=== PATIENT | female | born 1960 | race Caucasian/White ===

== ENCOUNTER 2018-07-01 05:27 | Inpatient (IN) ==
[2018-07-01] MEDS ORDERED: Chlorhexidine Gluconate 2% 1 Pack (2 Cloths) TOPICAL ONE (05:46)
[2018-07-01] MEDS ORDERED: Metoprolol Tartrate 25 MG Tablet PO ONE (05:46)
[2018-07-01] MEDS ORDERED: Dexamethasone Inj 20 MG/5 ML Vial IV.PUSH ONE (05:47)
[2018-07-01] MEDS ORDERED: Chlorhexidine 4% Topical 120 APPLIC/120 ML Bottle TOPICAL SCH (06:00)
[2018-07-01] MEDS ORDERED: Sodium Chlor 0.9% Inj 500 ML IV.SIG SCH (06:00)
[2018-07-01] MEDS ORDERED: ceFAZolin 2 GM Premix Inj 2 GM/50 ML PIGGYBACK IV.SIG SCH (06:00)
[2018-07-01] MEDS ORDERED: Vancomycin Inj 1,000 MG in Sodium Chlor 0.9% Inj 250 ML IV.SIG SCH (06:00)
[2018-07-01] MEDS ORDERED: fentaNYL Citrate Inj 250 MCG/5 ML Ampul ONE (06:20)
[2018-07-01] MEDS ORDERED: fentaNYL Citrate Inj 100 MCG/2 ML Ampul ONE (06:20)
[2018-07-01] MEDS ORDERED: Famotidine PF Inj 20 MG/2 ML Vial ONE (06:21)
--- NOTE | 2018-07-01 06:58 | P.DCO ---
- Physical Therapy Physical Therapy: Gait training, Transfer training, bed to chair Hip: Total hip Right Lower Extremity Weight Bearing: Weight bearing as tolerated Right Lower Extremity Range of Motion: Active ROM - Nursing Nursing: Rajiv bey Dressing changes: Do not change dressing - Certification Need for Home Health services: I have seen patient Regla Swann on 07/01/18. My clinical findings support the need for the requested home health care services because: Need for Home Health Services: Limited ability to care for self, High risk of falls Homebound Certification: I certify that my clinical findings support that this patient is homebound because: Homebound Certification: Post-op weakness, Unsteady gait/balance
[2018-07-01] MEDS ORDERED: Neostigmine Inj 5 MG/5 ML Syringe IV.PUSH ONE (07:00)
[2018-07-01] MEDS ORDERED: Phenylephrine/NS 1000 MCG/10ML Syringe IV.PUSH ONE (07:00)
[2018-07-01] MEDS ORDERED: TRANEXAMIC ACID IV.SIG SCH ×2 (07:00→10:00)
[2018-07-01] MEDS ORDERED: Glycopyrrolate Inj 1 MG/5 ML Syringe IV.PUSH ONE (07:00)
[2018-07-01] MEDS ORDERED: Lidocaine PF 1% Inj 5 ML Syringe OTHER ONE (07:00)
[2018-07-01] MEDS ORDERED: Sodium Chlor 0.9% Inj 40 ML, Bupivacaine Liposo PF 1.3% Inj 20 ML P-ARTICULR SCH ×2 (07:00)
[2018-07-01] MEDS ORDERED: SODIUM CHLOR 0.9% IV.SIG SCH ×2 (07:00→10:00)
[2018-07-01] MEDS ORDERED: Morphine Sulfate Inj 2 MG/ML Vial IV.PUSH PRN (08:57)
[2018-07-01] MEDS ORDERED: Zolpidem Tartrate 5 MG Tablet PO PRN (08:57)
[2018-07-01] MEDS ORDERED: Aluminum/Magnesium/Simethacone Susp 30 ML UDC PO PRN (08:57)
[2018-07-01] MEDS ORDERED: Post-op Orders (for Pharmacy) OTHER STA (08:57)
[2018-07-01] MEDS ORDERED: Bisacodyl 10 MG Supp RECTAL PRN (08:57)
--- NOTE | 2018-07-01 09:01 | P.OP ---
- Preoperative Diagnosis (1) Osteoarthritis of right hip - Postoperative Diagnosis (1) Osteoarthritis of right hip Date of procedure: 07/01/18 Procedure: Right total hip arthroplasty Anesthesia: GETA Surgeon: Ernesto Gold MD Air Tucker: LIDA Weber The surgical procedure was assisted by my Advanced Registered Nurse Practitioner. My MANAGER EPIC presence was necessary throughout this case for the manipulation and positioning of the surgical extremity. My MANAGER EPIC was assisting me throughout the duration of this procedure. The skill set of an Advance Registered Nurse Practitioner was medically necessary to complete this procedure. During the surgical case, the surgical nurse practitioner was working at the back table and the Advance Registered Nurse Practitioner was directly assisting me. Operation and Findings: IMPLANT DESCRIPTION: 1. Vincent Gription Cup, acetabular size 50. 2. Vincent AltrX polyethylene, neutral. 4. Corail femoral stem size 12, no collar, standard offset. 5. Femoral head/neck ceramic, 32, +5. ESTIMATED BLOOD LOSS: 200 cc. JUSTIFICATION FOR PROCEDURE: The patient has end-stage osteoarthritis to the hip. There is an attached conservative measures pathway form in the chart that describes the nonoperative measures that were undertaken prior to consideration of surgical management. The patient understood the risks and benefits of surgical management. See my office notes for further details. PROCEDURE: The patient was brought back to the operative theatre. Adequate anesthesia was obtained. The patient received intravenous vancomycin and Ancef. The patient was carefully placed on the operative table. The lower extremity was prepped and draped in the usual sterile fashion. Fluoroscopic images were obtained. We made a standard anterior incision over the hip. We dissected through the TFL fascia, exposing the anterior capsule. Arthrotomy was performed in a T-shaped fashion. The capsule was tagged with a #2 FiberWire. End-stage arthritis was identified. Osteotomy was performed through the femoral neck exposing the acetabulum. Remnants of the labrum were resected and osteophytes were removed. We sequentially reamed the acetabulum. We trialed the hip and placed the final cup into position. This was done under fluoroscopic guidance to obtain the appropriate inclination and anteversion. A manhole cover was placed into the acetabular component. We then placed the final polyethylene into position and confirmed that it was well seated. Capsular attachments on the calcar and the inner aspect of the greater trochanter were resected. On the proximal aspect of the femur we used a rongeur , box osteotome, canal finder, sequential broaches and lateralizing rasp. There was a small perforation of the lateral cortex with 1 of the broaches. The angle was corrected and then further broaching was completed ensuring intraosseous position. We calcar planed the proximal femur. Then thoroughly irrigated the wound. We trialed the hip with the appropriate size stem. We placed the final stem in to position and trialed again. The final stem was in excellent position with no varus alignment. No periprosthetic fracture was noted. The final stem seated very well with excellent stability to manual palpation. The hip was stable while it was externally rotated 70 degrees when the leg was lowered to the floor. We took fluoroscopic imaging showing excellent position of the stem. The final head was applied, and final fluoroscopic images were obtained. The wound was thoroughly irrigated again. Interarticular injection of liposomal bupivacaine was given. The capsule was closed with #2 FiberWire and #1 Vicryl. The deep fascia was closed with a #2 Stratafix, followed by 2-0 Vicryl in the skin and Dermabond dressing. Postop plan is to weight-bear as tolerated. DVT prophylaxis will be performed with SCDs, MILDRED zaldivar, early mobilization, and Lovenox followed by aspirin.
[2018-07-01] MEDS ORDERED: Sod Chloride 0.9% Inj 1,000 ML ONE (09:26)
[2018-07-01] MEDS ORDERED: *morphine SULFATE 4 MG/ML PERIprocedure ONLY ONE ×2 (09:32→09:45)
[2018-07-01] MEDS: Sod Chloride 0.9% Inj 1,000 ML IV.CONT SCH (09:40)
[2018-07-01] MEDS ORDERED: HYDROmorphone PF Inj 2 MG/ML Vial ONE (09:56)
--- NOTE | 2018-07-01 11:07 | XR ---
EXAM DATE: 07/01/2018 8:57 AM EDT AGE/SEX: 58 years / Female INDICATIONS: Post-op right total hip arthroplasty. CLINICAL DATA: This is the patient's subsequent encounter. Patient reports that signs and symptoms h ave been present for 1 day and indicates a pain score of 7/10. MEDICAL/SURGICAL HISTORY: Hypertension. Hysterectomy. section. Arthroscopy. COMPARISON: No prior exams available for comparison. FINDINGS: Right total hip arthroplasty is noted. The prosthesis is in good position. No acute fracture or dislo cation is noted. CONCLUSION: Status post right total hip arthroplasty with prosthesis in good position. Electronically signed by: Oscar Matthews MD 07/01/2018 11:05 AM EDT
[2018-07-01] MEDS: Senna/Docusate Sodium 8.6/50 MG Tablet PO SCH ×2 (11:54→20:22)
[2018-07-01] MEDS: Multivitamin/Minerals Therapeutic Tablet PO SCH ×2 (11:55→20:23)
[2018-07-01] MEDS: Potassium Chloride 10 MEQ ER Capsule PO SCH (11:55)
--- NOTE | 2018-07-01 13:49 | XR ---
EXAM DATE: 07/01/2018 12:00 AM EDT AGE/SEX: 58 years / Female INDICATIONS: Right total hip replacement. CLINICAL DATA: This is the patient's initial encounter. Patient reports that signs and symptoms have been present for 1 day and indicates a pain score of Nonresponsive. MEDICAL/SURGICAL HISTORY: Non-responsive. Non-responsive. COMPARISON: No prior exams available for comparison. FINDINGS: The patient is status post a total hip arthroplasty. Prosthesis is well-seated. Alignment is anatomic . A fracture is not appreciated. CONCLUSION: Anatomic alignment. Sven Ng MD FACR Electronically signed by: Sven Ng MD 07/01/2018 1:48 PM EDT
[2018-07-01] MEDS: Lisinopril 10 MG Tablet PO SCH (20:23)
[2018-07-02] MEDS: Sod Chloride 0.9% Inj 1,000 ML IV.CONT SCH ×2 (00:28→12:25)
[2018-07-02 05:05] LABS: Hematocrit 25.8 % (35.0-46.0); Hemoglobin 8.6 gm/dL (11.6-15.3)
--- NOTE | 2018-07-02 06:54 | P.PNOP ---
Subjective Interval history: Is resting comfortably in bed in no acute distress. The patient complains of mild to moderate right thigh pain. The patient has been ambulatory with assistance. Physical Exam Vital signs: Vital Signs 07/01/18 09:23 07/01/18 09:28 07/01/18 09:30 Temperature 98.1 F Pulse Rate 102 H 102 H Respiratory Rate 17 16 Blood Pressure 113/65 115/64 Pulse Oximetry 100 100 99 07/01/18 09:45 07/01/18 10:00 07/01/18 10:15 Temperature Pulse Rate 83 67 74 Respiratory Rate 16 16 17 Blood Pressure 113/67 100/52 L 106/58 L Pulse Oximetry 99 99 99 07/01/18 10:17 07/01/18 10:30 07/01/18 10:45 Temperature Pulse Rate 64 67 67 Respiratory Rate 16 16 16 Blood Pressure 106/58 L 96/52 L 105/56 L Pulse Oximetry 99 99 99 07/01/18 11:00 07/01/18 11:15 07/01/18 11:25 Temperature Pulse Rate 65 86 Respiratory Rate 17 17 Blood Pressure 101/51 L 105/67 Pulse Oximetry 100 100 99 07/01/18 11:30 07/01/18 11:40 07/01/18 11:59 Temperature 97.7 F 97.3 F L Pulse Rate 86 77 71 Respiratory Rate 17 17 16 Blood Pressure 107/52 L 96/52 L 97/56 L Pulse Oximetry 100 100 99 07/01/18 12:25 07/01/18 15:55 07/01/18 16:00 Temperature 97.2 F L Pulse Rate 70 Respiratory Rate 18 18 16 Blood Pressure 113/67 Pulse Oximetry 98 07/01/18 19:55 07/02/18 00:33 Temperature 97.5 F L 97.4 F L Pulse Rate 67 68 Respiratory Rate 18 18 Blood Pressure 166/72 H 119/73 Pulse Oximetry 95 96 Intake & Output 07/01/18 07/01/18 07/02/18 06:59 18:59 06:59 Intake Total 4100 / 4100 1580 / 1580 Output Total 600 / 600 550 / 550 Balance 3500 / 3500 1030 / 1030 Weight 87.3 kg 93.2 kg Intake: IV 2200 / 2200 1100 / 1100 NS Inj 1,000 ML @ 80 mls/hr IV. 1000 / 1000 CONT .[id number] [facility] Rx#:[id number] LR 1000 mL Inj 500 ML @ As 1500 / 1500 Directed IV.SIG .Q0M ONE Rx#: [id number] Cyklokapron Inj 875 MG In NS 200 / 200 Inj 100 ML @ 200 mls/hr IV.SIG ONCE [facility] Rx#:[id number] Vancomycin Inj 1,000 MG In NS 250 / 250 Inj 250 ML @ 250 mls/hr IV.SIG [employer] [facility] Rx#:[id number] Ancef 2 GM Premix Inj 2 gm In 50 / 50 50 ml @ 100 mls/hr IV.SIG [employer]EV[employer] [facility] Rx#:[id number] Ancef Inj 1,000 MG In NS Inj 200 / 200 100 / 100 100 ML @ 200 mls/hr IV.SIG Q6H [facility] Rx#:[id number] Oral 600 / 600 480 / 480 Anesthesia Amount 800 / 800 Other 500 / 500 Output: Urine 400 / 400 550 / 550 Estimated Blood Loss 200 / 200 Other: Other Intake Source Saline Solution # Voids 3 Date of Last Bowel Movement 06/30/18 06/30/18 # Bowel Movements 0 0 Weight On Admission 87.3 kg Narrative: The patient's dressing is clean, dry, and intact. There is mild ecchymosis about the right upper thigh. EHL/TA/G are intact. 2+ pedal pulse. The patient 's calf is soft and nontender. Sensation is intact to light touch distally. Results - Labs CBC & Chem 7: 07/02/18 03:49 Laboratory Results - last 24 hr 07/01/18 07/02/18 05:56 03:49 Hgb 8.6 L Hct 25.8 L Blood Type O Positive Blood Type Recheck Required Antibody Screen Negative - Imaging Impressions Hip X-Ray 07/01/18 00:00 CONCLUSION: Anatomic alignment. Sven Ng MD FACR Hip X-Ray 07/01/18 08:57 CONCLUSION: Status post right total hip arthroplasty with prosthesis in good position. - Procedures Right total hip arthroplasty Assessment and Plan - Problem List (1) Status post total hip replacement, right Code(s): Z96.641 - Presence of right artificial hip joint Status: Acute (2) Osteoarthritis of right hip Code(s): M16.11 - Unilateral primary osteoarthritis, right hip Status: Acute - Assessment and Plan POD #1: [Right] total hip arthroplasty 1. Weightbearing as tolerated on [right] lower extremity. 2. Lovenox followed by aspirin for DVT prophylaxis. 3. Ice as needed for swelling. 4. Stable per ortho for discharge to home health. 5. The patient will follow up with Dr. Gold and/or LIDA Romero as previously scheduled.
[2018-07-02] MEDS ORDERED: Dexamethasone Inj 20 MG/5 ML Vial IV.PUSH ONE (08:00)
[2018-07-02] MEDS: Multivitamin/Minerals Therapeutic Tablet PO SCH (08:50)
[2018-07-02] MEDS: Senna/Docusate Sodium 8.6/50 MG Tablet PO SCH (08:50)
[2018-07-02] MEDS: Potassium Chloride 10 MEQ ER Capsule PO SCH (08:50)
[2018-07-02] MEDS: Lisinopril 10 MG Tablet PO SCH (08:50)
[2018-07-02] MEDS ORDERED: Enoxaparin Inj 40 MG/0.4 ML Syringe SQ SCH (09:00)
[2018-07-02 12:13] VITALS: BP 114/60; PULSE 86; RESP 23; TEMP 98.1; O2SAT 93
--- NOTE | 2018-07-06 18:33 | P.DS ---
Date of admission: 07/01/18 05:27 Primary care physician: Louie Thomson MD Attending physician on discharge: Ernesto Burciaga Anticipated date of discharge: 07/02/18 Brief History from admission: The patient was admitted to the hospital for severe osteoarthritis of the right hip to have a right total hip arthroplasty DS: Diagnosis - Discharge Diagnosis (1) Status post total hip replacement, right Status: Acute (2) Osteoarthritis of right hip Status: Acute DS: Summary Hospital Course: The patient was admitted to the hospital for severe osteoarthritis of the [right ] hip to have a [right] total hip arthroplasty. The patient's surgery went well with no complication. The patient is on a [regular] diet. The patient's DVT prophylaxis includes use of [Lovenox followed by aspirin]. The patient is weightbearing as tolerated. The patient was discharged [home with home health] and will follow up in the office with Dr. Burciaga and/or LIDA Romero as previously scheduled. - Time Spent with Patient Total time spent providing and/or coordinating discharge services: Greater than 30 minutes - Quality: VTE Deep Vein Thrombosis/Pulmonary Embolism Present on Admission: Yes Exam Narrative: See last progress note for physical examination Results Procedures completed during hospitalization: Right total hip arthroplasty - Impressions ITS Impressions Hip X-Ray 07/01/18 08:57 CONCLUSION: Status post right total hip arthroplasty with prosthesis in good position. Discharge Plan - Discharge Disposition Patient Disposition: W/Home Health Service - Discharge Condition Condition: Stable - Discharge Order Discharge Orders: Discharge Order (Routine); Ordered 07/01/18 Ordered By: Sukh Robertson - Discharge Details Anticipated Discharge Date: 07/02/18 - Physicians Team Primary Care Provider: Louie Thomson Attending Provider: Ernesto Burciaga Other Providers: [employer],Insurance ; Nurse Oncall,Agency - Rxs /Orders / Referrals /Forms Prescriptions: Continue calcium carbonate-vitamin D3 [Calcium 600 + D(3)] 600 mg(1,500mg) -400 unit Tablet 1 tab PO DAILY lisinopril 10 mg Tablet 10 mg PO BID [id number] [Daily Multiple] 400-120 mcg-mg Tablet 1 tab PO DAILY potassium chloride 10 mEq Capsule, Extended Release 10 meq PO DAILY Discontinued acetaminophen [Acetaminophen Extra Strength] 500 mg Tablet 500 mg PO Q6H PRN (Reason: Pain) Ambulatory Orders / Order Sets / DME: Adjustable Commode 3-in-1 (1 each) (Routine) Location: Determined by Patient Ordered By: Sukh Robertson Walker With Front Wheels (1 each) (Routine) Location: Determined by Patient Ordered By: Sukh Robertson Referrals: Ernesto Burciaga MD [Physician] - See Instructions (F/U in the office with Dr. Burciaga or LIDA Romero as previously scheduled.) Louie Thomson MD [Primary Care Provider] - See Instructions - Discharge Instructions Patient Printed Instructions: Hydrocodone/Acetaminophen (By mouth), How to Choose and Use a Walker (GEN), Total Hip Replacement (DC) Additional Instructions: RX FOR PAIN PRESCRIPTION GIVEN TO PATIENT BY DOCTOR PRIOR TO ADMISSION. FOLLOW UP WITH DR. BURCIAGA SCHEDULED. IF YOU HAVE ANY QUESTIONS OR CONCERNS, PLEASE CALL THE OFFICE. FOLLOW UP WITH YOUR PRIMARY CARE PROVIDER IN 3-4 DAYS. NO HEAVY LIFTING OR STRENUOUS ACTIVITY. NO DRIVING WHILE TAKING NARCOTIC PAIN MEDICINE. DO NOT CHANGE YOUR DRESSING!! FIRST DRESSING CHANGE TO BE DONE IN OFFICE. - Post Discharge Care Plan Care Plan Goals: Discharge Care Plan Goals for Total Hip Replacement You had a hip replacement surgery. This means your natural hip was replaced with an artificial joint (prosthesis). You may be recovering at home or in a rehabilitation facility. Either way, you must take care of your new hip. Here are some goals to help you heal well. Directions to Meet your Goals: 1. Activity & Exercises: * Take pain medicine as directed by your doctor. * Dont drive until your doctor says its OK. And never drive while taking opioid pain medicine. * Wear the support stockings you were given in the hospital as directed by your surgeon. * Dont sit for more than 30 to 45 minutes at one time. * Dont lean forward while sitting. * Dont cross your legs. * Keep your feet flat on the floor. Dont turn your foot or leg inward. This stresses your hip joint. * Use an elevated toilet seat for 6 weeks after surgery. * Nap if you are tired, but dont stay in bed all day. * Sit on a firm cushion when you ride in a car and avoid sitting too low. Try not to bend your hip too much when getting in and out of the car. 2. Prevent Falls/Injury: * Follow your doctors orders regarding how much weight to put on the affected leg. * Dont bend at the hip when you bend over. Don't bend at the waist to put on socks and shoes. And avoid picking up items from the floor. * Use a cane, crutches, a walker, or handrails until your balance, flexibility, and strength improve. And remember to ask for help from others when you need it. * Free up your hands so that you can use them to keep balance. Use a alisa pack , apron, or pockets to carry things. * Arrange your household to keep the items you need handy. Keep everything else out of the way. * Remove items that may cause you to fall, such as throw rugs and electrical cords. * Use nonslip bath mats, grab bars, an elevated toilet seat, and a shower chair in your bathroom * Sit on a shower stool or chair when you shower to keep from falling. 3. Precautions: * Prevent infection. Any infection will need to be treated immediately. Call your doctor right away if you think you might have an infection. * Tell your dentist that you have an artificial joint and take antibiotics as prescribed before any dental work. * Tell all your healthcare providers about your artificial joint before any medical procedure. * Maintain a healthy weight. Get help to lose any extra pounds. Added body weight puts stress on the joints. 4. Incision Care: * Prevent infection by washing your hands often. If an infection occurs, it will need to be treated right away. * Call your doctor right away if you think you may have an infection. Symptoms include a fever or an incision that leaks white, green, or yellow fluid. * Don't soak your incision in water until your doctor says its OK. This means no hot tubs, bathtubs, or swimming pools. * Follow your doctor's instructions for changing the dressing. * Dont rub the incision, or apply creams or lotions to it. * If you notice any redness or drainage around the bandage site, contact your surgeon's office immediately. 5. Follow-Up: Do Not miss your follow-up appointment. Keep up with all your appointments and yearly check ups When to call your doctor: Call your doctor right away if you have: Hip pain gets worse Pain or swelling in your calf or leg not related to your incision Tenderness or redness in your calf Fever of 100.4F (38C) or higher, or as directed by your healthcare provider Shaking chills Swelling or redness at the incision site gets worse Fluid draining from the incision Call 911: Call 911 right away if you have: Chest pain Shortness of breath Any pain or tenderness in your calf
== END 2018-07-02 14:50 | disposition home health service (06) ==
LOC: HSDI 05:27 → N06 11:51
PROVIDERS: ADMIT Orthopaedic Surgery; ATTEND Orthopaedic Surgery